=== PATIENT | female | born 1950 | race Caucasian/White ===

== ENCOUNTER → 2016-10-30 | Day surgery (SDC) | payer MEDICARE, OTHER ==
[~2016-10-30] MED LIST: ADVAIR 500-501 EACH IH; ALBUTEROL17 GM INH; ANEXSIA 7.5/3251 TA1 PO; ANORO ELLIPTA1 EACH INH; ASPIRIN81 M2 PO; BRAIN MIGHT-DH1 EACH PO; CYCLOBENZAPRIN7.5 MG PO; FLOMAX0.4 M1 DOB; FRESHKOTE15 ML OU; GABAPENTIN300 M2 PO; GENTEAL GEL DRO25 ML OU; GUAIFENESIN CO PO; HYDROCHLOROTHIA25 MG PO; KCL PO; LEVOTHYROXINE50 MC1 PO; LISINOPRIL10 MG PO; LO-DOSE ASPIRIN81 M1 PO; LORTAB 7.51 TAB PO; MACROBID100 M1 DOB; MACULAR PROTECT COMP PO; MACULAR VITAMI1 EACH PO; MAGNESIUM500 MG PO; METFORMIN HCL500 M1 PO; MOBIC15 MG PO; MONTELUKAST SOD10 MG PO; NITROSTAT0.4 MG SL; NORCO 7.5-3251 EACH PO; OMEPRAZOLE40 M1 PO; OXYGEN; PHENERGAN25 M1 PO; POTASSIUM CHLO10 MEQ PO; PRAVASTATIN SOD40 MG PO; PREDNISONE PO; PRILOSEC40 MG PO; PROAIR HFA8.5 GM INH; REFRESH OP SOL0.4 ML OU; REGLAN10 MG PO; REGLAN5 MG PO; ROBAXIN 750750 M1 PO; ROBAXIN 750750 MG; SPIRIVA18 MCG INH; TIZANIDINE HCL4 M1 PO; TOPAMAX; TOPAMAX50 MG PO; TURMERIC500 M1 PO; TYLENOL #3 PO; XANAX0.5 M1 PO; ZOFRAN ODT4 M1; ZYRTEC10 M2 PO
--- NOTE | ~2016-10-30 | OR ---
Unit #: [id number] #: [id number] Patient: KIKO GRAVES [id number] [address] [place], [place] [address] [id number] O MR#: [id number] NAME: KIKO GRAVES ROOM: Date of Procedure: 10/30/2016 Admission Date: 10/30/2016 Surgeon: Hernandez Conklin M.D. : 1950 Attending Physician: Hernandez Conklin M.D. Primary Care Physician: Christos Rodriguez M.D. OPERATIVE REPORT JOB NOTE: CC: [facility] PREOPERATIVE DIAGNOSES 1. Back pain. 2. Radiculopathy. 3. Spinal stenosis. 4. Degenerative disk disease with myelopathy. POSTOPERATIVE DIAGNOSES 1. Back pain. 2. Radiculopathy. 3. Spinal stenosis. 4. Degenerative disk disease with myelopathy. PROCEDURE PERFORMED Lumbar epidural steroid injection with intravenous sedation and fluoroscopic guidance for needle localization. INDICATIONS FOR PROCEDURE The patient is a 66-year-old female, who had return of back and left lower extremity pain associated with previously mentioned diagnosis. She is not a surgical candidate and is highly intolerant of most analgesic medications. She has failed rehab. Epidural steroid injections the last done 14 months ago. She did very well until just last month or so. She had resurgence of pain in the same distribution. Based on history, pathology, and symptomatology, we are going to proceed with a repeat trial of epidural steroids. Last time, the patient did get additive improvement with each of the injection. She will likely require series at this time as well. DESCRIPTION OF PROCEDURE The patient was placed in the seated position. Standard monitors were applied. 2 mg of Versed were given for sedation and anxiolysis, which were adequate. Vital signs remained stable. Sterile prep and drape then of lumbar area was performed. The skin then at the L4 level was localized with 1% lidocaine. An 18-gauge CoWaretead needle was then advanced via loss of resistance technique and fluoroscopic guidance in toward the epidural space. After confirming proper positioning with fluoroscopy and radiographic contrast, 80 mg of Depo-Medrol and 4 mL of 0.125% bupivacaine were deposited. The patient tolerated the procedure otherwise well and was discharged to the recovery room in stable condition. Unit #: [id number] #: [id number] Patient: KIKO GRAVES Dictated by... Teetee Sams/david TD: 10/31/2016 01:27 JOB #: [id number] OPERATIVE REPORT X Hernandez Conklin MD X PROCEDURE OPERATIVE NOTE
== END | disposition home or self-care (01) ==
LOC: CCSC 10:38
DX: M51.06 Intervertebral disc disorders with myelopathy, lumbar region (principal); M51.16 Intervertebral disc disorders with radiculopathy, lumbar region; M48.06 Spinal stenosis, lumbar region; E11.9 Type 2 diabetes mellitus without complications; I10 Essential (primary) hypertension
CPT/HCPCS: 82947; J1040; J2250

== ENCOUNTER → 2016-11-06 | Day surgery (SDC) | payer MEDICARE, OTHER ==
--- NOTE | ~2016-11-06 | OR ---
Unit #: [id number] #: [id number] Patient: KIKO GRAVES [id number] [address] [address] [id number] O MR#: [id number] NAME: KIKO GRAVES ROOM: Date of Procedure: 11/06/2016 Admission Date: 11/06/2016 Surgeon: Hernandez Conklin M.D. : 1950 Attending Physician: Hernandez Conklin M.D. Primary Care Physician: Christos Rodriguez M.D. OPERATIVE REPORT JOB NOTE: CC: PAIN CENTER PREOPERATIVE DIAGNOSES 1. Back pain. 2. Radiculopathy. 3. Spinal stenosis. 4. Degenerative disk disease. POSTOPERATIVE DIAGNOSES 1. Back pain. 2. Radiculopathy. 3. Spinal stenosis. 4. Degenerative disk disease. PROCEDURE PERFORMED Lumbar epidural steroid injection with intravenous sedation and fluoroscopic guidance for needle localization. INDICATIONS FOR PROCEDURE The patient is a 66-year-old female return of back and left lower extremity pain due to previously mentioned nonsurgical pathology. She was last treated with epidural steroids 13 months ago. She did very well for about a year and then the pain came back in its prior distribution. Based on history, pathology, symptomatology, and treatment options, plan is to repeat an epidural steroid injection, first which resulted about 50% settling of her pain and is not back to the level we were able to settle to with the last injection, so we are going to proceed with a repeat injection today. DESCRIPTION OF PROCEDURE The patient was placed in a seated position. Standard monitors were applied. 2 mg of Versed were given for sedation and anxiolysis, which were adequate. Vital signs remained stable. Sterile prep and drape then of lumbar area was performed. The skin then at the L4-L5 level was localized with 1% lidocaine. An 18-gauge Disconnecttead needle was then advanced via loss of resistance technique and fluoroscopic guidance in toward the epidural space. After confirming proper positioning with fluoroscopy and radiographic contrast, 80 mg of Depo-Medrol and 4 mL of 0.125% bupivacaine were deposited. The patient tolerated the procedure otherwise well and was discharged to recovery room in stable condition. Unit #: [id number] #: [id number] Patient: GRAVESKIKO LEON by... Teetee Sams/david TD: 11/07/2016 02:49 JOB #: [id number] OPERATIVE REPORT Page 1 of 1 X Hernandez Conklin MD X PROCEDURE OPERATIVE NOTE
== END | disposition home or self-care (01) ==
LOC: CCSC 10:50
DX: M48.06 Spinal stenosis, lumbar region (principal); M51.16 Intervertebral disc disorders with radiculopathy, lumbar region; E11.9 Type 2 diabetes mellitus without complications; J44.9 Chronic obstructive pulmonary disease, unspecified; I10 Essential (primary) hypertension
CPT/HCPCS: 82947; J1040; J2250

== ENCOUNTER → 2016-11-13 | Day surgery (SDC) | payer MEDICARE, OTHER ==
--- NOTE | ~2016-11-13 | OR ---
Unit #: [id number] #: [id number] Patient: KIKO GRAVES [id number] [address] [address] [id number] O MR#: [id number] NAME: KIKO GRAVES. ROOM: Date of Procedure: 11/13/2016 Admission Date: 11/13/2016 Surgeon: Hernandez Conklin M.D. : 1950 Attending Physician: Hernandez Conklin M.D. Primary Care Physician: Christos Rodriguez M.D. OPERATIVE REPORT PREOPERATIVE DIAGNOSES Degenerative joint disease of the hips and bilateral hip pain. POSTOPERATIVE DIAGNOSES Degenerative joint disease of the hips and bilateral hip pain. PROCEDURE PERFORMED Bilateral hip injection with fluoroscopic guidance for needle localization and intravenous sedation. DESCRIPTION OF PROCEDURE The patient is morbidly obese patient, unable to do the injection percutaneously without fluoroscopic guidance. The patient was placed in a supine position. Standard monitors were applied. 2 mg of Versed were given for sedation and anxiolysis, which were adequate. Vital signs remained stable. Sterile prep and drape then of the hip area was performed. A 25-gauge Quincke point long needle was advanced with fluoroscopic guidance to the top of the greater trochanter on the right. The patient had no complaints of pain. The needle was advanced past the edge of the trochanter. After confirming proper positioning with fluoroscopy, a dose of 9 mL of 0.25% bupivacaine and 40 mg of Kenalog were injected in and around the greater trochanter. The patient was felt to have trochanteric bursitis. The patient tolerated this part of procedure well. The exact same procedure was then repeated on the left side. The skin was sterilely cleansed. Fluoroscopy was used to direct the needle to the top tip of the greater trochanter and similar dose of 9 mL of 0.25% bupivacaine and 40 mg of Kenalog were deposited. The patient tolerated the entire procedure well and was discharged to the recovery room in stable condition. Dictated by... Teetee SamsP/meganl TD: 11/14/2016 03:39 JOB #: [id number] Unit #: [id number] #: [id number] Patient: KIKO GRAVES OPERATIVE REPORT Page 1 of 1 X Hernandez Cnoklin MD X PROCEDURE OPERATIVE NOTE
== END | disposition home or self-care (01) ==
LOC: CCSC 10:38
DX: M16.0 Bilateral primary osteoarthritis of hip (principal); E11.9 Type 2 diabetes mellitus without complications; I10 Essential (primary) hypertension
CPT/HCPCS: 77002; 82947; J2250; J3301

== ENCOUNTER 2016-11-30 21:11 | Emergency (ER) | payer MEDICARE, OTHER ==
--- NOTE | ~2016-11-30 | CR72 ---
[facility]. [facility] A Service of [facility] & [facility] RADIOLOGY TEXT RESULTS PATIENT: KIKO GRAVES LOCATION: SED : 46 UNIT #: [id number] AGE: [address]: Mara Clemente MD SEX: F ORDER DR: [id number] [place] [id number] E MR#: [id number] Acc #: [id number] NAME: KIKO GRAVES. : 1950 SEX: F STUDY DATE/TIME: 11/30/2016 21:41 UNIT: SED ROOM: STUDY DESCRIPTION: CR Chest Single View Portable Attending Physician: Mara Clemente M.D. Ordering Physician: Mara Clemente M.D. Primary Care Physician: Christos Rodriguez M.D. MEDICAL IMAGING REPORT This report is preliminary unless electronic signature is present. EXAM AP portable chest 11/30/2016 HISTORY 66-year-old female in the ED complaining of 1-day history of chest pain and left arm pain. TECHNIQUE AP portable upright chest x-ray. FINDINGS Mild cardiomegaly. Pulmonary vascularity is normal. Lung volumes are low, but the lungs appear clear. No visible pulmonary infiltrate or pleural effusion. No change since 04/03/2015. IMPRESSION No active disease. Stable mild cardiomegaly. No change since 04/03/2015. Dictated by... Aaron Alonso M.D. THIS IS AN ELECTRONICALLY VERIFIED REPORT Aaron Alonso M.D. at 12/03/2016 5:59 AM SHARON/toshia TD: 12/01/2016 18:23 JOB #: [id number] MEDICAL IMAGING REPORT Page 1 of 1
--- NOTE | ~2016-11-30 | EKG ---
PATIENT: KIKO GRAVES UNIT #: [id number] Ventricular Rate: 103 BPM Atrial Rate: 103 BPM P-R Interval: 138 ms QRS Duration: 60 ms Q-T Interval: 344 ms QTC Calculation(Bezet): 450 ms P [place]: 89 degrees Calculated R [place]: 0 degrees Calculated T [place]: 67 degrees Diagnosis Line: Sinus tachycardia Diagnosis Line: Low voltage QRS Diagnosis Line: Otherwise normal ECG Diagnosis Line: When compared with ECG of 20-NOV-2014 14:15, Diagnosis Line: No significant change was found Diagnosis Line: Confirmed by MARTIN SAENZ MD ([id number]) on 12/13/2016 Diagnosis Line: 11:46:04 AM INTERPRETING MD: DANY SILVER
[2016-11-30 21:04] LABS: BASOPHIL# 0.1 X10e3 (0-0.3); BASOPHIL% 0.6 % (0-2.5); DIFF IND NO; EOSINOPHIL# 0.1 X10e3 (0-0.7); HEMATOCRIT 36.1 % (35.0-45.0); HEMOGLOBIN 12.2 gm/dL (12.0-16.0); LYMPHOCYTE# 1.5 X10e3 (1.0-3.5); LYMPHOCYTE% 16.2 % (17.0-45.0); MEAN CELL VOLUME 88.7 FL (83-96); MEAN CORPUSCULAR HGB CONC 33.9 g/dL (30-36); MONOCYTE# 0.7 X10e3 (0-1.0); MONOCYTE% 7.7 % (3.0-12.0); NEUTROPHIL# 6.7 X10e3 (1.5-7.1); NEUTROPHIL% 74.5 % (40-75); PLATELET COUNT 303 X10e3 (140-420); RED BLOOD COUNT 4.07 X10e (3.90-5.30); RED CELL DISTRIBUTION WIDTH 14.3 % (11.0-15.5)
[~2016-11-30 21:11] MED LIST changes: -FLOMAX0.4 M1 DOB; -MACROBID100 M1 DOB; -NORCO 7.5-3251 EACH PO; -ROBAXIN 750750 MG; -TOPAMAX; -ZOFRAN ODT4 M1
[2016-11-30 21:26] LABS: ALBUMIN SERUM 3.5 g/dL (3.5-5.0); BILIRUBIN, DIRECT 0.1 mg/dL (0.0-0.2); BILIRUBIN,INDIRECT 0.4 mg/dL (0.0-0.9); BILIRUBIN,TOTAL 0.5 mg/dL (0.2-2.0); BUN/CREATININE RATIO 28.88; CALCIUM SERUM 8.7 mg/dL (8.4-10.2); CREATININE SERUM 0.9 mg/dL (0.6-1.4); GLOM FILT RATE Estimated 65.7 mL/min (>60); POTASSIUM 3.5 mmol/L (3.5-5.1); PROTEIN TOTAL SERUM 6.6 g/dL (6.0-8.3)
[2016-11-30 22:01] LABS: POC - CKMB <1.0 ng/mL (0.0-7.9); POC - TROPONIN <0.05 ng/mL (<=0.05)
[2016-11-30 23:18] LABS: POC - CKMB <1.0 ng/mL (0.0-7.9); POC - TROPONIN <0.05 ng/mL (<=0.05)
== END 2016-12-01 00:30 | disposition home or self-care (01) ==
LOC: SED 21:11
PROVIDERS: Emergency Medicine
DX: S46.912A Strain of unspecified muscle, fascia and tendon at shoulder and upper arm level, left arm, initial encounter (principal); I50.9 Heart failure, unspecified; Z88.5 Allergy status to narcotic agent; X58.XXXA Exposure to other specified factors, initial encounter; Y92.9 Unspecified place or not applicable
CPT/HCPCS: 71010; 80048; 80076; 82553; 84484; 85025; 93005; 96374; 99283; J2405

== ENCOUNTER 2017-03-20 17:14 | Emergency (ER) | payer MEDICARE, OTHER ==
--- NOTE | ~2017-03-20 | CT4 ---
[facility] A Service of [facility] & [facility] RADIOLOGY TEXT RESULTS PATIENT: KIKO GRAVES LOCATION: SED : 46 UNIT #: [id number] AGE: [address]: CB NJ SEX: F ORDER DR: [id number] [address] [address] [id number] E MR#: [id number] Acc #: [id number] NAME: KIKO GRAVES : 1950 SEX: F STUDY DATE/TIME: 03/20/2017 19:00 UNIT: SED ROOM: STUDY DESCRIPTION: CT Abd and Pelv Wo Cont Attending Physician: Cb Nj Ordering Physician: Staff Doctor Not On Primary Care Physician: Christos Rodriguez M.D. MEDICAL IMAGING REPORT This report is preliminary unless electronic signature is present. EXAM CT abdomen and pelvis without contrast 03/20/2017 1900 hours HISTORY 67-year-old woman with prior history of kidney stones complaining of right flank pain since last night with nausea and vomiting. COMPARISON 06/18/2014 TECHNIQUE Helical noncontrasted images were obtained from the lung bases through the pubic symphysis without oral and intravenous contrast. Sagittal and coronal reconstructions were performed. Total exam DLP 1770 mGy-cm. This CT exam was performed with one or more of the following radiation dose reduction techniques: automatic control, adjustment of mA and/or kV according to patient size, and iterative reconstruction. FINDINGS Images through the lung bases demonstrate stable basilar linear fibrotic density and scarring. There are calcified granulomatous left infrahilar nodes which are stable. Images through the abdomen demonstrate a normal-sized liver and spleen with calcified granulomata in both organs. The pancreas is normal. The gallbladder is surgically absent. There is dilatation of the common bile duct measuring 1.7 cm previously 1.6 cm felt chronic and benign. The adrenal glands are normal. The left kidney is normal. The right kidney is dilated. There is a punctate stone in the anterior mid-right kidney nonobstructing. There is linear stranding around the right kidney new from the prior exam. The renal pelvis is dilated to the level of the ureteropelvic junction where there is an obstructing stone measuring 6 mm [facility] A Service of [facility] & [facility] RADIOLOGY TEXT RESULTS PATIENT: KIKO GRAVES LOCATION: SED : 46 UNIT #: [id number] AGE: [address]: CB [place] SEX: F ORDER DR: x 8 mm. This is a relatively high grade obstruction. The ureter distal to this obstruction is nondilated and normal in appearance. The bladder is contracted and appears normal. Stomach is contracted and normal in appearance. The small bowel is normal. The colon demonstrates a few scattered uncomplicated diverticula. The uterus is surgically absent. There is a stable small fat density periumbilical hernia. There is no bowel involvement. IMPRESSION 1. There is a 6 x 8 mm stone at or just distal to the right ureteropelvic junction resulting in high-grade obstruction with dilated right kidney, right renal pelvis and stranding around the kidney and renal pelvis. There is a punctate to 2 mm nonobstructing stone in the mid right kidney. The distal right ureter, left kidney and left ureter are normal. 2. Cholecystectomy change with prominent common bile duct measuring 1.7 cm previously 1.6 cm. This is felt to represent benign stable postoperative change. Dictated by... Salma Owusu M.D. THIS IS AN ELECTRONICALLY VERIFIED REPORT Salma Owusu M.D. at 03/20/2017 9:02 PM ADRIAN/hannah TD: 03/20/2017 19:49 JOB #: [id number] MEDICAL IMAGING REPORT Page 1 of 1
[2017-03-20] MEDS ORDERED: TOPAMAX (17:21)
[2017-03-20] MEDS ORDERED: ROBAXIN 750750 MG (17:21)
[2017-03-20 17:58] LABS: URINE SOURCE CLEAN CATCH
[2017-03-20 18:00] LABS: URINE APPEARANCE CLEAR; URINE BILIRUBIN NEG (NEG); URINE BLOOD 1+ (NEG); URINE COLOR YELLOW; URINE GLUCOSE NEG (NORM); URINE KETONE NEG (NEG); URINE LEUKOCYTE ESTERASE TRACE (NEG); URINE NITRATE NEG (NEG); URINE PROTEIN NEG (NEG); URINE SPECIFIC GRAVITY >=1.030 (1.003-1.035); URINE UROBILINOGEN 0.2 MG/DL (NORM)
[2017-03-20 18:07] LABS: MICRO INDICATED? YES
[2017-03-20 18:16] LABS: CULTURE INDICATED? YES; URINE BACTERIA 1+ (NEG); URINE SQUAMOUS EPITHELIAL CELL FEW /[HPF]
[2017-03-20 18:25] LABS: BASOPHIL% 0.3 % (0-2.5); HEMATOCRIT 38.1 % (35.0-45.0); HEMOGLOBIN 12.8 gm/dL (12.0-16.0); LYMPHOCYTE# 1.3 X10e3 (1.0-3.5); LYMPHOCYTE% 9.2 % (17.0-45.0); MEAN CELL VOLUME 88.6 FL (83-96); MEAN CORPUSCULAR HEMOGLOBIN 29.7 PG (28-34); MEAN CORPUSCULAR HGB CONC 33.6 g/dL (30-36); MEAN PLATELET VOLUME 7.3 FL (6.5-11.5); MONOCYTE# 1.4 X10e3 (0-1.0); MONOCYTE% 9.9 % (3.0-12.0); NEUTROPHIL# 11.3 X10e3 (1.5-7.1); NEUTROPHIL% 80.6 % (40-75); PLATELET COUNT 332 X10e3 (140-420); RED CELL DISTRIBUTION WIDTH 13.9 % (11.0-15.5)
[2017-03-20 18:26] LABS: DIFF IND NO
[2017-03-20 18:36] LABS: ALBUMIN SERUM 3.8 g/dL (3.5-5.0); BILIRUBIN,TOTAL 0.7 mg/dL (0.2-2.0); CALCIUM SERUM 8.7 mg/dL (8.4-10.2); GLOM FILT RATE Estimated 57.5 mL/min (>60); POTASSIUM 3.4 mmol/L (3.5-5.1); PROTEIN TOTAL SERUM 7.3 g/dL (6.0-8.3)
[2017-03-20] MEDS ORDERED: FLOMAX0.4 M1 DOB (21:35)
[2017-03-20] MEDS ORDERED: NORCO 7.5-3251 EACH PO (21:36)
[2017-03-20] MEDS ORDERED: ZOFRAN ODT4 M1 (21:37)
[2017-03-20] MEDS ORDERED: MACROBID100 M1 DOB (21:37)
== END 2017-03-20 21:37 | disposition home or self-care (01) ==
LOC: SED 17:14
PROVIDERS: Emergency Medicine; Nurse Practitioner
DX: N20.2 Calculus of kidney with calculus of ureter (principal); K21.9 Gastro-esophageal reflux disease without esophagitis; E11.9 Type 2 diabetes mellitus without complications; J44.9 Chronic obstructive pulmonary disease, unspecified; F17.200 Nicotine dependence, unspecified, uncomplicated; Z90.49 Acquired absence of other specified parts of digestive tract; Z90.710 Acquired absence of both cervix and uterus; Z98.890 Other specified postprocedural states; Z79.899 Other long term (current) drug therapy; Z88.1 Allergy status to other antibiotic agents; Z88.5 Allergy status to narcotic agent; Z91.041 Radiographic dye allergy status; Z88.6 Allergy status to analgesic agent; Z91.048 Other nonmedicinal substance allergy status
CPT/HCPCS: 36415; 74176; 80053; 81003; 82150; 83690; 85025; 87086; 96374; 96375; 99284; J1170; J2405

== ENCOUNTER → 2017-04-12 | Outpatient (CLI) | payer MEDICARE, OTHER ==
[~2017-04-12] MED LIST changes: +FLOMAX0.4 M1 DOB; +MACROBID100 M1 DOB; +NORCO 7.5-3251 EACH PO; +ROBAXIN 750750 MG; +TOPAMAX; +ZOFRAN ODT4 M1
--- NOTE | ~2017-04-12 | CR7 ---
[facility] A Service of [facility] & [facility] RADIOLOGY TEXT RESULTS PATIENT: KIKO GRAVES LOCATION: [facility] : 46 UNIT #: [id number] AGE: [address]: Moe Fontaine MD SEX: F ORDER DR: [id number] [facility] [address] [place], [place] [address] [id number] O MR#: [id number] Acc #: [id number] NAME: KIKO GRAVES : 1950 SEX: F STUDY DATE/TIME: 04/12/2017 16:50 UNIT: [facility] ROOM: STUDY DESCRIPTION: CR Abdomen Single AP View Attending Physician: Moe Fontaine M.D. Referring Physician: Moe Fontaine M.D. Ordering Physician: Moe Fontaine M.D. Primary Care Physician: Christos Rodriguez M.D. MEDICAL IMAGING REPORT This report is preliminary unless electronic signature is present EXAM AP of the abdomen. INDICATIONS Right kidney stone. Nausea, pain since March 20. COMPARISON Comparison with CT, 03/20/2017. FINDINGS Patient had a known 6 mm right ureteral stone on the CT scan. On today's study, the stone is either passed or is radiographically occult due to the overlap of the lumbar spine. Right upper quadrant clips. IMPRESSION The patient's 6 mm stone is either passed or is radiographically occult. Dictated by... Ilan Rivero M.D. THIS IS AN ELECTRONICALLY VERIFIED REPORT Ilan Rivero M.D. at 04/14/2017 9:09 AM ALEC/song TD: 04/13/2017 18:25 JOB #: [id number] MEDICAL IMAGING REPORT Page 1 of 1 COPY
== END | disposition home or self-care (01) ==
LOC: CRAD 16:35
DX: N20.0 Calculus of kidney (principal)
CPT/HCPCS: 74000